=== PATIENT | female | born 1995 | race African-American/Black ===

== ENCOUNTER 2018-11-03 22:56 | Emergency (ER) | payer OTHER ==
[~2018-11-03] VITALS: Ht 170.2 cm; Wt 95.7 kg
[2018-11-03 23:24] VITALS: BP 130/81
== END 2018-11-03 23:24 | disposition home or self-care (01) ==
LOC: M.ERS 22:56
DX: S06.0X0A Concussion without loss of consciousness, initial encounter (principal); W22.8XXA Striking against or struck by other objects, initial encounter; Y93.89 Activity, other specified; Y92.89 Other specified places as the place of occurrence of the external cause; Y99.8 Other external cause status